=== PATIENT | male | born 1990 | race Caucasian/White ===

== ENCOUNTER 2021-08-18 22:49 | Emergency (ER) | payer MEDICAID ==
[~2021-08-18] VITALS: Ht 180.3 cm; Wt 95.5 kg
[2021-08-18 22:49] VITALS: BP 141/84
--- OUTSIDE RECORDS SUMMARY | 2021-08-18 23:03 | CCD ---
Author Author [employer] [facility] Address Unknown Phone Unavailable Support Name Relationship Address Phone [facility] Next Of Kin [address] [place], [place] [id number] Next Of Kin Unknown Unavailable HERNAN GARCIA Next Of Kin [address] [place], [place] [address] Re-disclosure Warning The records that you are about to access may contain information from federally-assisted alcohol or drug abuse programs. If such information is present, then the following federally mandated warning applies: This information has been disclosed to you from records protected by federal confidentiality rules (42 CFR part 2). The federal rules prohibit you from making any further disclosure of this information unless further disclosure is expressly permitted by the written consent of the person to whom it pertains or as otherwise permitted by 42 CFR part 2. A general authorization for the release of medical or other information is NOT sufficient for this purpose. The Federal rules restrict any use of the information to criminally investigate or prosecute any alcohol or drug abuse patient.The records that you are about to access may contain highly sensitive health information, the redisclosure of which is protected by Article 27-F of the [facility] Public Health law. If you continue you may have access to information: Regarding HIV / AIDS; Provided by facilities licensed or operated by the [facility] Office of Mental Health; or Provided by the [facility] Office for People With Developmental Disabilities. If such information is present, then the following [facility] mandated warning applies: This information has been disclosed to you from confidential records which are protected by state law. State law prohibits you from making any further disclosure of this information without the specific written consent of the person to whom it pertains, or as otherwise permitted by law. Any unauthorized further disclosure in violation of state law may result in a fine or chcf sentence or both. A general authorization for the release of medical or other information is NOT sufficient authorization for further disc losure. Immunizations Vaccine Date Status Description Data Source(s) COVID-19 VACCINE Moderna 05/31/2021 12:00:00 AM EDT completed [facility] Vaccine Series Complete: YESThis Data wa s Submitted to [facility] Via [employer]. COVID-19 VACCINE Moderna 04/28/2021 12:00:00 AM EDT completed [facility] Vaccine Series Complete: NOThis Data was Submitted to [facility] Via [employer]. Medications No Information Insurance Providers Payer name Policy type / Coverage type Policy ID Covered republican ID Covered republican's relationship to medeiros Policy Medeiros Plan Information State Ins Fund () Workers Compensation [id number] Self State Ins Fund () Workers Compensation [id number] Self State Ins Fund () Workers Compensation [id number] Self [id number] [facility] Ins Medigap Part B [id number] Self MEDICAID [id number] SP [id number] MEDICAID [id number] SP [id number] SELF PAY ONLY UNK SP UNK STATE INSURANCE FUND [id number] SP [id number] [employer]CTION [id number] SP [id number] [employer] O [id number] O [id number] [facility] MEDICAL CLAIMS [id number] FA2 [id number] [facility] [id number] S [id number] [facility] MEDICAID [id number] SP [id number] [facility] [id number] S [id number] [facility] Medigap Part B [id number] Self [id number] STATE INSURANCE [facility] O [id number] S [id number] Problems, Conditions, and Diagnoses No Information Surgeries/Procedures No Information Results No Information Social History No Information
--- OUTSIDE RECORDS SUMMARY | 2021-08-18 23:25 | CCD ---
Author Author [facility] Address Unknown Phone Unavailable Support Name Relationship Address Phone [facility] Next Of Kin [address] [place], [place] [address] Next Of Kin Unknown Unavailable HERNAN GARCIA Next Of Kin [address] [place], [place] [address] Re-disclosure Warning The records that you are [...] is protected by Article 27-F of the [facility] Public Health law. If you continue you may have access to information: Regarding HIV / AIDS; Provided by facilities licensed or operated by the [facility] Office of Mental Health; or Provided by the [facility] Office for People With Developmental Disabilities. If such information is present, then the following [facility] mandated warning applies: This information has [...] law may result in a fine or longterm sentence or both. A general authorization for the release of medical or other information is NOT sufficient authorization for further disc losure. Immunizations Vaccine Date Status Description Data Source(s) COVID-19 VACCINE Moderna 05/31/2021 12:00:00 AM EDT completed [facility] Vaccine Series Complete: YESThis Data wa s Submitted to [facility] Via [employer]. COVID-19 VACCINE Moderna 04/28/2021 12:00:00 AM EDT completed [facility] Vaccine Series Complete: NOThis Data was Submitted to [facility] Via [employer]. Medications No Information Insurance Providers Payer name Policy type / Coverage type Policy ID Covered alliance party ID Covered alliance party's relationship to medeiros Policy Medeiros Plan Information State Ins Fund () Workers Compensation [id number] Self State Ins Fund () Workers Compensation [id number] Self State Ins Fund () Workers Compensation [id number] Self [id number] [facility] Ins Medigap Part B [id number] Self MEDICAID [id number] SP [id number] MEDICAID [id number] SP [id number] SELF PAY ONLY UNK SP UNK STATE INSURANCE FUND [id number] SP [id number] [employer]CTION [id number] SP [id number] [employer] O [id number] O [id number] [facility] MEDICAL CLAIMS [id number] FA2 [id number] [facility] [id number] S [id number] [facility] MEDICAID [id number] SP [id number] [facility] [facility] [id number] S [id number] [facility] Medigap Part B [id number] Self [id number] STATE INSURANCE [facility] O [id number] S [id number] Problems, Conditions, and Diagnoses No Information Surgeries/Procedures No Information Results No Information Social History No Information
== END 2021-08-19 00:07 | disposition left against medical advice (07) ==
LOC: M ED 22:49
DX: Z53.21 Procedure and treatment not carried out due to patient leaving prior to being seen by health care provider (principal)